=== PATIENT | female | born 1980 | race Caucasian/White ===

== ENCOUNTER 2017-02-07 17:48 | Emergency (ER) | payer OTHER ==
[2017-02-07 17:53] VITALS: BP 119/72; PULSE 85; TEMP 98; BMI 37.8
--- NOTE | 2017-02-07 18:23 | PDOC ---
History of Present Illness - General Chief Complaint: Injury Stated Complaint: FALL THUMB INJURY Time Seen by Provider: 02/07/17 18:04 History Source: Patient - History of Present Illness Occurred: reports: yesterday Severity: reports: mild Upper Extremity Pain Location: left: thumb Past History - Past Medical History Allergies/Adverse Reactions: Allergies Allergy/AdvReac Type Severity Reaction Status Date / Time No Known Allergies Allergy Verified 02/07/17 17:50 Home Medications: Ambulatory Orders NK [No Known Home Medication] 02/07/17 Asthma: Yes GI Disorders: Yes (GERD) Kidney Stones: Yes Suicide Attempt (Hx): No Other medical history: GALLSTONES - Family Disease History Family Disease History: Diabetes: Mother - Immunization History Immunization Up to Date: No - Psycho/Social/Smoking Cessation Hx Anxiety: No Suicidal Ideation: No Smoking Status: No Smoking History: Never smoked Have you smoked in the past 12 months: No Number of Cigarettes Smoked Daily: 0 Information on smoking cessation initiated: No Hx Alcohol Use: No Drug/Substance Use Hx: No Substance Use Type: None Review of Systems - Review of Systems Musculoskeletal: Yes: Joint Pain, Joint Swelling Neurological: No: Headache, Dizziness *Physical Exam - Vital Signs Last Vital Signs Temp Pulse Resp BP Pulse Ox 98.0 F 85 18 119/72 100 02/07/17 17:50 02/07/17 17:50 02/07/17 17:50 02/07/17 17:50 02/07/17 17:50 - Physical Exam General Appearance: Yes: Appropriately Dressed. No: Apparent Distress HEENT: positive: Normal Voice, Other (minimal swelling/ecchymosis to L periorbital area, able to open eye fully, no conjunctival involvement, no gross fb, EOMI, no facial crepitus/stepoff) Neck: positive: Supple Respiratory/Chest: negative: Respiratory Distress Extremity: positive: Normal Inspection (abrasions to L forearm, ecchymosis w/ ttp along palmar aspect of L 1st metatarsal, no snuffbox ttp) Integumentary: positive: Dry, Warm Neurologic: positive: Fully Oriented, Alert, Normal Mood/Affect ED Treatment Course - RADIOLOGY Radiology Studies Ordered: Category Date Time Status FINGER(S) LEFT [RAD] Stat Radiology 02/07/17 18:22 Ordered Medical Decision Making - Medical Decision Making 02/07/17 18:22 36 yo F, no sig hx, p/w L thumb injury s/p fall. Pt states while outdoors last night she tripped and fell. Also c/o L eye pain and swelling which has since improved. No pain inside eye, photophobia, tearing, fb sensation or visual changes. No LOC, headache, dizziness, n/v See exam L thumb injury M/l sprain -xr r/o fx L eri-orbital contusion No e/o serious injury, i.e blow out fx or facial fx -ice as needed for swelling *DC/Admit/Observation/Transfer Diagnosis at time of Disposition: Thumb sprain Qualifiers: Encounter type: initial encounter Sprain of finger site: unspecified site Laterality: left Qualified Code(s): S63.602A - Unspecified sprain of left thumb , initial encounter Periorbital contusion of left eye Qualifiers: Encounter type: initial encounter Qualified Code(s): S05.12XA - Contusion of eyeball and orbital tissues, left eye, initial encounter - Discharge Dispostion Disposition: HOME Condition at time of disposition: Good - Patient Instructions Printed Discharge Instructions: DI for Finger Sprain Additional Instructions: Take motrin for pain as needed
== END 2017-02-07 19:05 | disposition home or self-care (01) ==
LOC: JERFT 17:48
DX: S63.622A Sprain of interphalangeal joint of left thumb, initial encounter (principal); S05.12XA Contusion of eyeball and orbital tissues, left eye, initial encounter; W18.39XA Other fall on same level, initial encounter; Y93.89 Activity, other specified; Y92.488 Other paved roadways as the place of occurrence of the external cause
CPT/HCPCS: 73140-TC-LT; 99281-25

== ENCOUNTER 2017-06-02 17:57 | Emergency (ER) | payer OTHER ==
[2017-06-02 18:16] VITALS: BP 127/76; PULSE 77; TEMP 98.3; BMI 37.8
[2017-06-02] MEDS ORDERED: DEXAMETHASONE LIQUID 0.5 MG/5 ML 240 ML BULK BOTTLE PO ONE (19:20)
[2017-06-02] MEDS ORDERED: ALBUTEROL SO4 2.5/IPRATROPIUM 0.5 INH SOL 3 ML VIAL.NEB. NEB ONE ×2 (19:21→19:29)
[2017-06-02] MEDS ORDERED: DEXAMETHASONE SOD PHOSPHATE 10 MG/1 ML VIAL ONE (19:23)
--- NOTE | 2017-06-02 19:26 | PDOC ---
History of Present Illness - General Chief Complaint: Cold Symptoms Stated Complaint: PAIN, ACUTE Time Seen by Provider: 06/02/17 18:36 History Source: Patient Exam Limitations: No Limitations - History of Present Illness Initial Comments: 06/02/17 19:23 Chief complaint: Cough 2-3 days with chest tightness History of present illness: Patient is a 37-year-old female with a history of asthma here today complaining of intermittent chest tightness with productive cough of greenish phlegm for 2-3 days. Patient denies any fever, nasal congestion, sore throat, or any other symptoms. Patient denies any admissions to the hospital due to her asthma. Patient has been using of Ventolin pump and nebulizer with relief of symptoms intermittently. Denies any chance of . Timing/Duration: getting worse Severity: mild Associated Symptoms: reports: cough (GREENISH PHELGM ), shortness of breath ( INTERMITENTLY ) Past History - Past Medical History Allergies/Adverse Reactions: Allergies Allergy/AdvReac Type Severity Reaction Status Date / Time No Known Allergies Allergy Verified 06/02/17 18:15 Home Medications: Ambulatory Orders Albuterol 0.083% Nebulizer Redd [Ventolin 0.083% Nebulizer Soln -] 1 neb NEB Q4H PRN #1 vial MDD 6 06/02/17 Albuterol Sulfate Inhaler - [Ventolin Hfa Inhaler -] 1 - 2 inh PO Q4H 06/02/17 Albuterol Sulfate Inhaler - [Ventolin Hfa Inhaler -] 2 inh PO Q4H PRN #1 inh MDD 6 06/02/17 Azithromycin [Zithromax 250mg Tablets -] 250 mg PO UTDICT #6 tab MDD 500 Fluticasone/Salmeterol [Advair Hfa 230-21 Mcg Inhaler] 1 inh PO BID #1 inhaler MDD 2 06/02/17 Asthma: Yes GI Disorders: Yes (GERD) Kidney Stones: Yes - Family Disease History Family Disease History: Diabetes: Mother - Immunization History Immunization Up to Date: No - Suicide/Smoking/Psychosocial Hx Smoking Status: No Smoking History: Never smoked Have you smoked in the past 12 months: No Number of Cigarettes Smoked Daily: 0 Hx Alcohol Use: Yes (SOCIAL) Drug/Substance Use Hx: No Substance Use Type: None Review of Systems - Review of Systems Able to Perform ROS?: Yes Constitutional: No: Symptoms Reported HEENTM: No: Symptoms Reported Respiratory: Yes: Shortness of Breath (INTERMITTENT), Productive cough ( GREENISH ) Cardiac (ROS): No: Symptoms Reported ABD/GI: No: Symptoms Reported Musculoskeletal: No: Symptoms Reported Integumentary: No: Symptoms Reported *Physical Exam - Vital Signs Last Vital Signs Temp Pulse Resp BP Pulse Ox 98.3 F 77 20 127/76 99 06/02/17 18:12 06/02/17 18:12 06/02/17 18:12 06/02/17 18:12 06/02/17 18:12 - Physical Exam General Appearance: Yes: Appropriately Dressed HEENT: positive: Normal ENT Inspection Neck: negative: Lymphadenopathy (R), Lymphadenopathy (L) Respiratory/Chest: positive: Lungs Clear, Normal Breath Sounds. negative: Chest Tender, Respiratory Distress Cardiovascular: positive: Regular Rhythm, Regular Rate, S1, S2 Integumentary: positive: Normal Color Neurologic: positive: Alert, Normal Response Medical Decision Making - Medical Decision Making 06/02/17 19:25 Patient is a 37-year-old female with a history of asthma here today complaining of intermittent chest tightness with productive cough of greenish phlegm for 2- 3 days. Patient denies any fever, nasal congestion, sore throat, or any other symptoms. Patient denies any admissions to the hospital due to her asthma. Patient has been using of Ventolin pump and nebulizer with relief of symptoms intermittently. Denies any chance of . ASTHMATIC BRONCHITIS PLAN: DUONEB NOW DECADRON 10 MG PO NOW ADVAIR 112/21 MCG ONE INHALE BID VENTOLIN HFA 2 PUFFS EVERY 4 HRS PRN WHEEZING, CHEST TIGHTNESS ALBUTEROL NEB 0.083% REDD EVERY 4 HRS PRN WHEEZING, CHEST TIGHTNESS AZITHROMYCIN 250 MG 2 TABS TODAY THAN ONE TAB DAILY FOR FOLLOWING 4 DAYS 06/02/17 19:33 *DC/Admit/Observation/Transfer Diagnosis at time of Disposition: Asthmatic bronchitis Qualifiers: Asthma severity: unspecified severity Asthma complication type: uncomplicated Qualified Code(s): J45.909 - Unspecified asthma, uncomplicated - Discharge Dispostion Disposition: HOME Condition at time of disposition: Stable - Prescriptions Prescriptions: Fluticasone/Salmeterol [Advair Hfa 230-21 Mcg Inhaler] 1 inh PO BID #1 inhaler MDD 2 Albuterol 0.083% Nebulizer Redd [Ventolin 0.083% Nebulizer Soln -] 1 neb NEB Q4H PRN #1 vial MDD 6 PRN Reason: Short Of Breath/Wheezing Albuterol Sulfate Inhaler - [Ventolin Hfa Inhaler -] 2 inh PO Q4H PRN #1 inh MDD 6 PRN Reason: Short Of Breath/Wheezing Azithromycin [Zithromax 250mg Tablets -] 250 mg PO UTDICT #6 tab MDD 500 - Referrals Referrals: Margie Goetz [Primary Care Provider] - - Patient Instructions Additional Instructions: Follow-up with your primary care provider within the next couple of days Return to emergency room if symptoms worsen or new symptoms develop any difficulty breathing Patient voiced understanding of discharge instructions and all questions were answered Thank you for choosing [facility] emergency room for your medical care today - Post Discharge Activity
== END 2017-06-02 20:02 | disposition home or self-care (01) ==
LOC: JERFT 17:57
PROC: 3E0F7GC Introduction of Other Therapeutic Substance into Respiratory Tract, Via Natural or Artificial Opening (ICD-10-PCS; principal; 2017-06-02)
DX: J45.909 Unspecified asthma, uncomplicated (principal)
CPT/HCPCS: 99281-25

== ENCOUNTER 2018-11-29 15:43 | Emergency (ER) | payer OTHER ==
[2018-11-29 16:21] VITALS: BMI 39.4
[2018-11-29 16:42] LABS: URINE APPEARANCE CLEAR; URINE BILIRUBIN NEGATIVE (<2.0 mg/dL); URINE COLOR LTYELLOW; URINE GLUCOSE (UA) NEGATIVE (NEGATIVE); URINE KETONE NEGATIVE (NEGATIVE); URINE LEUK ESTERASE NEGATIVE (NEGATIVE); URINE NITRITE NEGATIVE (NEGATIVE); URINE PROTEIN NEGATIVE (NEGATIVE); URINE UROBILINOGEN NEGATIVE mg/dL (0.2-1.0)
[2018-11-29 16:43] LABS: HCG,QUALITATIVE URINE Negative
[2018-11-29] MEDS ORDERED: KETOROLAC TROMETHAMINE 60 MG/2 ML VIAL IM ONE (18:25)
--- NOTE | 2018-11-29 18:27 | PDOC ---
History of Present Illness - General History Source: Patient Exam Limitations: No Limitations - History of Present Illness Initial Comments: 11/29/18 18:27 The patient is a 38 year old female, with a significant past medical history of kidney stones s/p lithotripsy x4, who presents to the emergency department with low back pain since . She states she rode 4 hrs on a bus recently. She localizes her pain to the L5 midline region. She denies pain radiation. She denies saddle anesthesia. She denies any other complaints. She reports 2 weeks of loose stool, nonbloody, but denies any bowel incontinence. The patient denies chest pain, shortness of breath, headache and dizziness. The patient denies fever, chills, nausea, vomit, diarrhea and constipation. The patient denies dysuria, frequency, urgency and hematuria. Allergies: NKDA Past surgical history: none reported Social history: denies tobacco use <Vale Hartman - Last Filed: 11/29/18 18:27> <Madiha Laurent - Last Filed: 11/29/18 20:54> - General Chief Complaint: Back Pain Stated Complaint: LOWER BACK PAIN Time Seen by Provider: 11/29/18 18:08 Past History <Vale Hartman - Last Filed: 11/29/18 18:27> - Past Medical History Asthma: Yes COPD: No GI Disorders: Yes (GERD) Kidney Stones: Yes - Family Disease History Family Disease History: Diabetes: Mother - Immunization History Immunization Up to Date: No - Suicide/Smoking/Psychosocial Hx Smoking Status: No Smoking History: Unknown if ever smoked Have you smoked in the past 12 months: No Number of Cigarettes Smoked Daily: 0 Hx Alcohol Use: Yes (SOCIAL) Drug/Substance Use Hx: No Substance Use Type: None <Madiha Laurent - Last Filed: 11/29/18 20:54> - Past Medical History Allergies/Adverse Reactions: Allergies Allergy/AdvReac Type Severity Reaction Status Date / Time No Known Allergies Allergy Verified 06/02/17 18:15 Home Medications: Ambulatory Orders Cyclobenzaprine HCl [Flexeril 10 mg] 10 mg PO BID PRN #10 tablet MDD 2 tabs Ibuprofen 800 mg PO TID PRN #21 tablet MDD 3 tabs 11/29/18 Medroxyprogesterone Acetate [Depo-Provera] 150 mg IM ASDIR 11/29/18 Sertraline HCl [Zoloft -] 125 mg PO DAILY 11/29/18 Tramadol HCl 50 mg PO DAILY PRN #4 tablet MDD 1 tab 11/29/18 Review of Systems - Review of Systems Able to Perform ROS?: Yes Comments:: 11/29/18 18:27 CONSTITUTIONAL: Absent: fever, chills, fatigue EYES: Absent: visual changes ENT: Absent: ear pain, sore throat CARDIOVASCULAR: Absent: chest pain, palpitations RESPIRATORY: Absent: cough, SOB GI: (+) diarrhea. Absent: abdominal pain, nausea, vomiting, constipation, GENITOURINARY: Absent: dysuria, frequency, hematuria MUSCULOSKELETAL: (+) back pain,Absent: arthralgia, myalgia SKIN: Absent: rash NEURO: Absent: headache <Vale Hartman - Last Filed: 11/29/18 18:27> *Physical Exam - Vital Signs Last Vital Signs Temp Pulse Resp BP Pulse Ox 98.2 F 87 22 H 132/87 100 11/29/18 16:16 11/29/18 16:16 11/29/18 16:16 11/29/18 16:16 11/29/18 16:16 - Physical Exam Comments: 11/29/18 18:28 GENERAL: Well developed, well nourished. Awake and alert. No acute distress. HEENT: Normocephalic, atraumatic. PERRLA, EOMI. No conjunctival pallor. Sclera are non- icteric. Moist mucous membranes. Oropharynx is clear. NECK: Supple. Full ROM. No JVD. Carotid pulses 2+ and symmetric, without bruits. No thyromegaly. No lymphadenopathy. CARDIOVASCULAR: Regular rate and rhythm. No murmurs, rubs, or gallops. Distal pulses are 2+ and symmetric. PULMONARY: No evidence of respiratory distress. Lungs clear to auscultation bilaterally. No wheezing, rales or rhonchi. ABDOMINAL: (+) protuberant. Soft. Non-tender. Non-distended. No rebound or guarding. No organomegaly. Normoactive bowel sounds. MUSCULOSKELETAL (+) tenderness to L5 midline. No CVA tenderness. Normal range of motion at all joints. No bony deformities or stepoffs. EXTREMITIES: No cyanosis. No clubbing. No edema. No calf tenderness. SKIN: Warm and dry. Normal capillary refill. No rashes. No jaundice. NEUROLOGICAL: Alert, awake, appropriate. Cranial nerves 2-12 intact. Normoreflexic in the upper and lower extremities. Normal speech. Toes are down-going bilaterally. Gait is normal without ataxia. PSYCHIATRIC: Cooperative. Good eye contact. Appropriate mood and affect. <Vale Hartman - Last Filed: 11/29/18 18:27> - Vital Signs Last Vital Signs Temp Pulse Resp BP Pulse Ox 98.2 F 87 22 H 132/87 100 11/29/18 16:16 11/29/18 16:16 11/29/18 16:16 11/29/18 16:16 11/29/18 16:16 <Madiha Laurent - Last Filed: 11/29/18 20:54> Moderate Sedation - Procedure Monitoring Vital Signs: Procedure Monitoring Vital Signs Temperature 98.2 F 11/29/18 16:16 Pulse Rate 87 11/29/18 16:16 Respiratory Rate 22 H 11/29/18 16:16 Blood Pressure 132/87 11/29/18 16:16 O2 Sat by Pulse Oximetry (%) 100 11/29/18 16:16 <Vale Hartman - Last Filed: 11/29/18 18:27> - Procedure Monitoring Vital Signs: Procedure Monitoring Vital Signs Temperature 98.2 F 11/29/18 16:16 Pulse Rate 87 11/29/18 16:16 Respiratory Rate 22 H 11/29/18 16:16 Blood Pressure 132/87 11/29/18 16:16 O2 Sat by Pulse Oximetry (%) 100 11/29/18 16:16 <Madiha Laurent - Last Filed: 11/29/18 20:54> ED Treatment Course - ADDITIONAL ORDERS Additional order review: Laboratory Results 11/29/18 16:22 Urine Color Ltyellow Urine Appearance Clear Urine pH 6.0 Ur Specific Hennessey 1.023 Urine Protein Negative Urine Glucose (UA) Negative Urine Ketones Negative Urine Blood Negative Urine Nitrite Negative Urine Bilirubin Negative Urine Urobilinogen Negative Ur Leukocyte Esterase Negative Urine HCG, Qual Negative <Vale Hartman - Last Filed: 11/29/18 18:27> - ADDITIONAL ORDERS Additional order review: Laboratory Results 11/29/18 16:22 Urine Color Ltyellow Urine Appearance Clear Urine pH 6.0 Ur Specific Hennessey 1.023 Urine Protein Negative Urine Glucose (UA) Negative Urine Ketones Negative Urine Blood Negative Urine Nitrite Negative Urine Bilirubin Negative Urine Urobilinogen Negative Ur Leukocyte Esterase Negative Urine HCG, Qual Negative <Madiha Laurent - Last Filed: 11/29/18 20:54> *DC/Admit/Observation/Transfer - Attestations Scribe Attestion: 11/29/18 18:28 Documentation prepared by Vale Hartman, acting as bilingual medical assistant for Madiha Laurent MD <Vale Hartman - Last Filed: 11/29/18 18:27> <Madiha Laurent - Last Filed: 11/29/18 20:54> Diagnosis at time of Disposition: Low back pain Qualifiers: Chronicity: unspecified Back pain laterality: midline Sciatica presence: without sciatica Qualified Code(s): M54.5 - Low back pain - Discharge Dispostion Disposition: HOME Condition at time of disposition: Stable - Prescriptions Prescriptions: Cyclobenzaprine HCl [Flexeril 10 mg] 10 mg PO BID PRN #10 tablet MDD 2 tabs PRN Reason: Back Pain Ibuprofen 800 mg PO TID PRN #21 tablet MDD 3 tabs PRN Reason: Back Pain Tramadol HCl 50 mg PO DAILY PRN #4 tablet MDD 1 tab PRN Reason: Back Pain - Referrals Referrals: Margie Goetz [Primary Care Provider] - - Patient Instructions Printed Discharge Instructions: DI for Low Back Pain Additional Instructions: please follow up with your regular physician - Post Discharge Activity
[2018-11-29] MEDS ORDERED: KETOROLAC TROMETHAMINE 60 MG/2 ML VIAL ONE (18:31)
[2018-11-29] MEDS ORDERED: CYCLOBENZAPRINE HCL 10 MG TABLET (FP) ONE (19:12)
[2018-11-29] MEDS ORDERED: CYCLOBENZAPRINE HCL 10 MG TABLET (FP) PO ONE (19:20)
[2018-11-29 19:39] VITALS: BP 116/70; PULSE 68; TEMP 98.7
== END 2018-11-29 21:09 | disposition home or self-care (01) ==
LOC: JER 15:43
PROC: 3E0233Z Introduction of Anti-inflammatory into Muscle, Percutaneous Approach (ICD-10-PCS; principal; 2018-11-29)
DX: M54.5 Low back pain (principal); K21.9 Gastro-esophageal reflux disease without esophagitis; J45.909 Unspecified asthma, uncomplicated; Z87.442 Personal history of urinary calculi
CPT/HCPCS: 81003; 84703; 87086; 87186; 96372; 99282-25

== ENCOUNTER → 2019-02-08 | Emergency (ER) | payer OTHER | END | disposition left against medical advice (07) | LOC: JER 01:25 ==

== ENCOUNTER 2019-06-10 06:16 | Emergency (ER) | payer OTHER ==
[2019-06-10 06:58] VITALS: BP 136/95; PULSE 86; TEMP 97.3; BMI 39.4
--- NOTE | 2019-06-10 07:20 | PDOC ---
History of Present Illness - General Chief Complaint: Pain Stated Complaint: PAIN Time Seen by Provider: 06/10/19 07:15 History Source: Patient - History of Present Illness Initial Comments: 06/10/19 07:44 Ms. Orantes is a 39 y/o woman with hx sciatica, asthma presenting with three weeks of ongoing back and L leg pain. She reports that she previously had flares of sciatica, which were managed with stretching and exercise. She reports that three weeks ago she had a long car ride on a road trip to [place]. She reports that the pain began in her L back after the car ride, and radiated down her L leg. She reports that the pain progressively worsened, until it hit its current 10/10 severity last . She describes the pain as shooting, radiation down the L leg as well as some pain to her R back as well. She reports that she was evaluated at [facility] three days ago where she was treated with percocet and diazepam which did not alleviate her symptoms. She denies any fevers, chills, weakness, pain elsewhere, shortness of breath, chest pain, abdominal pain, incontinence. Past History - Past Medical History Allergies/Adverse Reactions: Allergies Allergy/AdvReac Type Severity Reaction Status Date / Time No Known Allergies Allergy Verified 06/02/17 18:15 Home Medications: Ambulatory Orders Cyclobenzaprine HCl [Flexeril 10 mg] 10 mg PO BID PRN #10 tablet MDD 2 tabs Ibuprofen 800 mg PO TID PRN #21 tablet MDD 3 tabs 11/29/18 Medroxyprogesterone Acetate [Depo-Provera] 150 mg IM ASDIR 11/29/18 Sertraline HCl [Zoloft -] 125 mg PO DAILY 11/29/18 Tramadol HCl 50 mg PO DAILY PRN #4 tablet MDD 1 tab 11/29/18 Diazepam [Valium] 5 mg PO DAILY PRN #10 tablet MDD 1 06/10/19 Asthma: Yes COPD: No GI Disorders: Yes (GERD) Kidney Stones: Yes - Immunization History Immunization Up to Date: No - Psycho Social/Smoking Cessation Hx Smoking Status: No Smoking History: Never smoked Have you smoked in the past 12 months: No Number of Cigarettes Smoked Daily: 0 Hx Alcohol Use: No Drug/Substance Use Hx: No Substance Use Type: None Review of Systems - Review of Systems Able to Perform ROS?: Yes Comments:: 06/10/19 08:00 ROS: GENERAL/CONSTITUTIONAL: No fever or chills. No weakness. HEAD, EYES, EARS, NOSE AND THROAT: No change in vision. No ear pain or discharge. No sore throat. CARDIOVASCULAR: No chest pain or shortness of breath RESPIRATORY: No cough, wheezing, or hemoptysis. GASTROINTESTINAL: No nausea, vomiting, diarrhea or constipation. GENITOURINARY: No dysuria, frequency, or change in urination. MUSCULOSKELETAL: Back pain, L leg pain. No other joint or muscle swelling or pain. No neck pain. SKIN: No rash NEUROLOGIC: No headache, vertigo, loss of consciousness, or change in strength/ sensation. ENDOCRINE: No increased thirst. No abnormal weight change HEMATOLOGIC/LYMPHATIC: No anemia, easy bleeding, or history of blood clots. ALLERGIC/IMMUNOLOGIC: No hives or skin allergy. *Physical Exam - Vital Signs Last Vital Signs Temp Pulse Resp BP Pulse Ox 97.3 F L 86 20 136/95 95 06/10/19 06:30 06/10/19 06:30 06/10/19 06:30 06/10/19 06:30 06/10/19 06:30 - Physical Exam Comments: 06/10/19 08:43 PE: GENERAL: Awake, alert, and fully oriented, tearful, moderate distress HEAD: No signs of trauma, normocephalic, atraumatic EYES: PERRLA, EOMI, sclera anicteric, conjunctiva clear ENT: Auricles normal inspection, hearing grossly normal, nares patent, oropharynx clear without exudates. Moist mucosa NECK: Normal ROM, supple, no lymphadenopathy, JVD, or masses LUNGS: No distress, speaks full sentences, clear to auscultation bilaterally HEART: Regular rate and rhythm, normal S1 and S2, no murmurs, rubs or gallops, peripheral pulses normal and equal bilaterally. ABDOMEN: Soft, nontender, normoactive bowel sounds. No guarding, no rebound. No masses EXTREMITIES : Normal inspection, LLE ROM limited by pain, no edema. No clubbing or cyanosis NEUROLOGICAL: 5/5 strength in bilateral lower extremity. Sensation equal and intact in bilateral lower extremity. Cranial nerves II through XII grossly intact. Normal speech, gait limited by pain, no focal sensorimotor deficits. SKIN: Warm, Dry, normal turgor, no rashes or lesions noted General Appearance: Yes: Nourished, Appropriately Dressed, Apparent Distress, Moderate Distress. No: Alcohol on Breath, Intoxicated Medical Decision Making - Medical Decision Making 06/10/19 08:01 39F with hx sciatica p/w three weeks of back pain radiating to L leg, unable to cooperate with majority of physical exam at this time. Pain most likely representing sciatica given history, but further exam needed to assess other red flag back pain signs. Plan: Toradol 15mg Valium 5mg Reassess once pain is more controlled Dispo: Likely discharge pending pain control, repeat exams 06/10/19 08:46 Pain improved with toradol, valium. She reports some ongoing pain. On physical exam: 5/5 strength on hip flexion/extension, 5/5 strength on ankle flexion/ extension in bilateral LE, sensation intact bilaterally. Given no neuro signs, no red flag back pain signs, plan for discharge, outpatient follow up with PCP, neurology given duration of symptoms. Plan for outpatient valium for pain control. Discharge - Discharge Information Problems reviewed: Yes Clinical Impression/Diagnosis: Sciatica Qualifiers: Laterality: left Qualified Code(s): M54.32 - Sciatica, left side Condition: Stable Disposition: HOME - Admission No - Additional Discharge Information Prescriptions: Diazepam [Valium] 5 mg PO DAILY PRN #10 tablet MDD 1 PRN Reason: Pain - Follow up/Referral Referrals: Margie Goetz [Primary Care Provider] - - Patient Discharge Instructions Patient Printed Discharge Instructions: DI for Back Pain With Sciatica Additional Instructions: You were seen in the Emergency Department for severe back pain that spreads down your leg. Your symptoms are likely due to a condition called Sciatica. Please follow up with your primary care provider as soon as possible. We are also giving you a referral for a neurologist to follow up with, please make an appointment to see them as soon as possible. We are prescribing you valium to help control your symptoms - please take it as directed. This medication can make you sleepy, please do not drive or operate heavy machinery while taking this medication. - Post Discharge Activity
[2019-06-10] MEDS ORDERED: KETOROLAC TROMETHAMINE 15 MG/ML VIAL IM ONE (07:37)
[2019-06-10] MEDS ORDERED: diazePAM 5 MG TABLET PO ONE (07:38)
[2019-06-10] MEDS ORDERED: diazePAM 5 MG TABLET ONE (08:15)
[2019-06-10] MEDS ORDERED: KETOROLAC TROMETHAMINE 15 MG/ML VIAL ONE (08:16)
--- NOTE | 2019-06-10 13:46 | PDOC ---
Attending Attestation - Resident Resident Name: NaWilliam - ED Attending Attestation I have performed the following: I have examined & evaluated the patient, The case was reviewed & discussed with the resident, I agree w/resident's findings & plan, Exceptions are as noted - HPI HPI: 06/10/19 13:40 39 yo F with h/o sciatica, here with c/o low back pain. pain worse with movement , radiates down left leg. states started after long car ride few weeks ago. no bowel or bladder incontinence, no h/o prior imaging. no new weakness or numbness. pain severe 03/22. no f/c - Physicial Exam PE: 06/10/19 13:41 awake alert lungs clear bilat heart rrr no mrg abd nt nd ext wwp. no midline spinal tenderness. paraspinal m spasm. lower extremity strength 5/5 bilat sensation intact throughout. - Medical Decision Making 06/10/19 13:46 39 yo F with low back pain normal nuerological exam. plan nsaids, muscle relaxers. pt improved following her meds. will dc home wiht work note, nuero fu. advised to seek pcp fu for outpt physicial therapy and nueroimaging if no improveent to sxs.
== END 2019-06-10 09:15 | disposition home or self-care (01) ==
LOC: JER 06:16
PROC: 3E0233Z Introduction of Anti-inflammatory into Muscle, Percutaneous Approach (ICD-10-PCS; principal; 2019-06-10)
DX: M54.42 Lumbago with sciatica, left side (principal); J45.909 Unspecified asthma, uncomplicated; K21.9 Gastro-esophageal reflux disease without esophagitis; Z87.442 Personal history of urinary calculi
CPT/HCPCS: 84703; 96372; 99283-25

== ENCOUNTER 2019-08-12 22:56 | Emergency (ER) | payer OTHER ==
[2019-08-12 23:01] VITALS: TEMP 98; BMI 41.1
--- NOTE | 2019-08-13 00:31 | PDOC ---
History of Present Illness - General Chief Complaint: Pain Stated Complaint: PAIN Time Seen by Provider: 08/13/19 00:27 - History of Present Illness Initial Comments: 08/13/19 00:35 The patient is a 39 year old female with a history of Asthma, sciatic back pain , kidney stones, who presents for evaluation of lower back pain. The patient reports a 1 day history of left sided lower back pain radiating down her left leg worse with movement similar to her prior exacerbations of her sciatic back pain. She states that the pain has been worsening since onset prompting her presentation to the ED for further evaluation. She otherwise denies fevers, chills, SOB, chest pain, nausea, vomiting, abdominal pain, or changes with urination or bowel movements. Past History - Past Medical History Allergies/Adverse Reactions: Allergies Allergy/AdvReac Type Severity Reaction Status Date / Time No Known Allergies Allergy Verified 08/12/19 23:01 Home Medications: Ambulatory Orders Medroxyprogesterone Acetate [Depo-Provera] 150 mg IM ASDIR 11/29/18 Sertraline HCl [Zoloft -] 125 mg PO DAILY 11/29/18 Tramadol HCl 50 mg PO DAILY PRN #4 tablet MDD 1 tab 11/29/18 Diazepam [Valium] 5 mg PO DAILY PRN #10 tablet MDD 1 06/10/19 Cyclobenzaprine HCl [Flexeril 10 mg] 10 mg PO BID PRN #10 tablet MDD 2 tabs 10/01 Ibuprofen 800 mg PO TID PRN #21 tablet MDD 3 tabs 08/13/19 Asthma: Yes COPD: No GI Disorders: Yes (GERD) Kidney Stones: Yes Other medical history: chronic lower back pain - Immunization History Immunization Up to Date: No - Psycho Social/Smoking Cessation Hx Smoking Status: No Smoking History: Never smoked Have you smoked in the past 12 months: No Number of Cigarettes Smoked Daily: 0 Hx Alcohol Use: No Drug/Substance Use Hx: No Substance Use Type: None Review of Systems - Review of Systems Comments:: 08/13/19 00:38 Constitutional: No fevers, chills, fatigue, malaise HEENT: No Rhinorrhea, nasal congestion, visual changes Cardiovascular: No chest pain, syncope, palpitations, lightheadedness Respiratory: No Cough, SOB, Hemoptysis, Gastrointestinal: No Abdominal pain, Nausea, Vomiting, Constipation, Diarrhea, Melena Genitourinary: No Dysuria, Frequency, Urgency, Hesitancy, Hematuria, Flank pain Musculoskeletal: Lower back pain. No Myalgia, arthralgia Skin: No rashes, itching, bruising, pallor Neurologic: No Headache, Dizziness, Numbness, Weakness, or Tingling Psychiatric: No Hallucinations. No SI or HI *Physical Exam - Vital Signs Last Vital Signs Temp Pulse Resp BP Pulse Ox 98 F 64 18 129/79 99 08/12/19 22:58 08/12/19 22:58 08/12/19 22:58 08/12/19 22:58 08/12/19 22:58 - Physical Exam 08/13/19 00:38 General Appearance: Nourished. No Apparent Distress HEENT: No Pharyngeal Erythema, Tonsillar Exudate, Tonsillar Erythema Neck: No Cervical Lymphadenopathy Respiratory/Chest: Lungs Clear, Normal Breath Sounds. No Crackles, Rales, Rhonchi, Wheezing Cardiovascular: Regular Rhythm, Regular Rate. No Murmur, Gallops, Rubs Gastrointestinal/Abdominal: Normal Bowel Sounds, Soft. No Guarding, Rebound, Tenderness Musculoskeletal: Tenderness to palpation to the left parasinal lumbar region of the lower back. Reproducible pain with left leg raise. Normal patella reflexes on exam. No CVA Tenderness Extremity: Normal Capillary Refill Integumentary: Normal Color, Dry, Warm Neurologic: Fully Oriented, Alert, Normal Mood/Affect, Normal Response, Motor Strength 5/5. Medical Decision Making - Medical Decision Making 08/13/19 00:40 The patient is a 39 year old female with a history of Asthma, sciatic back pain , kidney stones, who presents for evaluation of lower back pain. Given the patient's history and physical exam, it is likely the patient's symptoms are due to an exacerbation of her chronic sciatic back pain. We will obtain a ua and urine preg. We will treat with flexril, toradol, and a lidocaine patch and continue to monitor and reassess while here in the ED. 08/13/19 04:03 The patient reports improvement in her symptoms after medications. We are comfortable discharging the patient home in stable condition. Patient and family made aware of impression and plan, return precautions discussed including but not limited to worsening pain or symptoms, fevers, or signs of infection, chest pain, respiratory distress, inability to tolerate oral intake, dehydration, syncope, or neurologic changes. The patient is to follow up with PMD and specialist as recommended within 1 week, follow up information provided and the patient will call for an appointment. The patient is to take medications as instructed for duration of time and continue with supportive care , avoid triggers and precipitants. Patient is safe for outpatient follow-up. Discharge - Discharge Information Problems reviewed: Yes Clinical Impression/Diagnosis: Low back pain Qualifiers: Chronicity: unspecified Back pain laterality: unspecified Sciatica presence: with sciatica Sciatica laterality: sciatica laterality unspecified Qualified Code(s): M54.40 - Lumbago with sciatica, unspecified side Condition: Improved Disposition: HOME - Admission No - Additional Discharge Information Prescriptions: Cyclobenzaprine HCl [Flexeril 10 mg] 10 mg PO BID PRN #10 tablet MDD 2 tabs PRN Reason: Back Pain Ibuprofen 800 mg PO TID PRN #21 tablet MDD 3 tabs PRN Reason: Back Pain - Follow up/Referral Referrals: Margie Goetz [Primary Care Provider] - Skyler Hayes MD [Staff Physician] - - Patient Discharge Instructions Patient Printed Discharge Instructions: DI for Back Pain With Sciatica Additional Instructions: 1) Please follow-up with your primary care doctor in the next 2-3 days. Please call tomorrow to schedule a follow up appointment. If you cannot follow up with your doctor within 1 week please return to the Emergency Department for any urgent issues. 2) If you have any worsening of symptoms or any other concerns, please return to the ER immediately. Return if worsening symptoms including fevers, headache, vomiting, visual or hearing disturbances, abdominal pain, chest pain, shortness of breath, syncope, dehydration, inability to take things by mouth/vomiting, altered mental status, or worsening concerning symptoms. 3) Please continue taking your home medications as directed. Your medications on discharge include flexeril. Side effects may include upset stomach, abdominal pain, vomiting, or diarrhea. Do not drink alcohol with your medications. - Post Discharge Activity
[2019-08-13] MEDS ORDERED: CYCLOBENZAPRINE HCL 10 MG TABLET (FP) PO ONE (00:32)
[2019-08-13] MEDS ORDERED: LIDOCAINE 5% TOPICAL PATCH TP ONE (00:32)
[2019-08-13] MEDS ORDERED: LIDOCAINE 5% TOPICAL PATCH ONE (00:52)
[2019-08-13] MEDS ORDERED: CYCLOBENZAPRINE HCL 10 MG TABLET (FP) ONE (00:52)
--- NOTE | 2019-08-13 01:12 | PDOC ---
Attending Attestation - Resident Resident Name: Pete Gacria - ED Attending Attestation I have performed the following: I have examined & evaluated the patient, The case was reviewed & discussed with the resident, I agree w/resident's findings & plan, Exceptions are as noted - HPI HPI: 08/13/19 01:10 39 F with h/o asthma, chronic lower back pain, kidney stones, presenting to ED with lower back pain. Pt states that she has had lower back pain on and off for several months. She denies any falls or trauma. Yesterday, she bent down to pick something up and exacerbated her back pain. States that it radiates down her L leg. Denies any weakness/numbness in any extremity. No incontinence or saddle anesthesia. No dysuria or flank pain. No F/C. - Physicial Exam PE: 08/13/19 01:11 "GENERAL: Awake, alert, and fully oriented, in no acute distress. HEAD: No signs of trauma EYES: PERRLA, EOMI, sclera anicteric, conjunctiva clear ENT: Auricles normal inspection, hearing grossly normal, nares patent, oropharynx clear without exudates. Moist mucosa NECK: Nontender, no stepoffs, Normal ROM, supple, no lymphadenopathy, JVD, or masses LUNGS: Breath sounds equal, clear to auscultation bilaterally. No wheezes, and no crackles HEART: Regular rate and rhythm, normal S1 and S2, no murmurs, rubs or gallops ABDOMEN: Soft, nontender, normoactive bowel sounds. No guarding, no rebound. No masses EXTREMITIES: Normal range of motion, no edema. No clubbing or cyanosis. No cords, erythema, or tenderness NEUROLOGICAL: Cranial nerves II through XII intact. 5/5 strength and sensation in all extremities, Normal speech, normal gait, normal cerebellar function SKIN: Warm, Dry, normal turgor, no rashes or lesions noted. BACK: + L paraspinal TTP, no midline TTP, no stepoffs - Medical Decision Making 08/13/19 01:11 39 F with lower back pain radiating down L leg. Likely sciatic nerve pain. Pt neurovascularly intact. No evidence of cord compression or cauda equina. No CVAT to suggest nephrolithiasis. - UA, UPT - pain control 08/13/19 03:39 Pain well controlled Pt ambulatory without assistance Pt is well appearing, with normal vitals. Clinically stable for DC at this time. I discussed the physical exam findings, ancillary test results and final diagnoses with the patient. I answered all of the patient's questions. The patient was satisfied with the care received and felt comfortable with the discharge plan and treatment plan. The patient agrees to follow up with the primary care physician within 24-72 hours.
[2019-08-13 01:57] LABS: PH,URINE 6.5 (5.0-8.0); URINE APPEARANCE CLEAR; URINE BILIRUBIN NEGATIVE (NEGATIVE); URINE COLOR YELLOW; URINE GLUCOSE (UA) NEGATIVE (NEGATIVE); URINE KETONE NEGATIVE (NEGATIVE); URINE LEUK ESTERASE NEGATIVE (NEGATIVE); URINE NITRITE NEGATIVE (NEGATIVE); URINE PROTEIN NEGATIVE (NEGATIVE); URINE UROBILINOGEN 0.2 mg/dL (0.2-1.0)
[2019-08-13] MEDS ORDERED: KETOROLAC TROMETHAMINE 60 MG/2 ML VIAL IM ONE (02:01)
[2019-08-13] MEDS ORDERED: KETOROLAC TROMETHAMINE 60 MG/2 ML VIAL ONE (02:30)
[2019-08-13] MEDS ORDERED: diazePAM 5 MG TABLET PO ONE (02:49)
[2019-08-13 04:17] VITALS: BP 132/90; PULSE 87
== END 2019-08-13 04:17 | disposition home or self-care (01) ==
LOC: JER 22:56
PROC: 3E0233Z Introduction of Anti-inflammatory into Muscle, Percutaneous Approach (ICD-10-PCS; principal; 2019-08-12)
DX: M54.42 Lumbago with sciatica, left side (principal); J45.909 Unspecified asthma, uncomplicated; Z87.442 Personal history of urinary calculi
CPT/HCPCS: 81003; 84703; 96372; 99282-25

== ENCOUNTER 2020-03-09 12:43 | Emergency (ER) | payer OTHER ==
[2020-03-09 12:59] VITALS: TEMP 98.4; BMI 42.9
[2020-03-09] MEDS ORDERED: DEXAMETHASONE LIQUID 0.5 MG/5 ML PO ONE (13:36)
[2020-03-09] MEDS ORDERED: DEXAMETHASONE SOD PHOSPHATE 10 MG/1 ML VIAL ONE ×2 (13:38→13:39)
[2020-03-09] MEDS ORDERED: DEXAMETHASONE SOD PHOSPHATE 10 MG/1 ML VIAL IVPUSH ONE (13:44)
[2020-03-09 15:53] VITALS: BP 135/86; PULSE 88
== END 2020-03-09 15:53 | disposition home or self-care (01) ==
LOC: JER 12:43
PROC: 3E033GC Introduction of Other Therapeutic Substance into Peripheral Vein, Percutaneous Approach (ICD-10-PCS; principal; 2020-03-09)
DX: J03.90 Acute tonsillitis, unspecified (principal)
CPT/HCPCS: 70490-TC; 87070; 87880; 99284-25; J1100

== ENCOUNTER 2022-07-22 18:52 | Emergency (ER) | payer OTHER ==
[2022-07-22 19:27] VITALS: BP 126/72; PULSE 90; RESP 18; TEMP 97.7; BMI 46.3
[2022-07-22] MEDS ORDERED: ACETAMINOPHEN 1000 MG/100 ML BAG IVPB ONE (20:55)
[2022-07-22] MEDS ORDERED: ALBUTEROL SO4 2.5/IPRATROPIUM 0.5 INH SOL 3 ML VIAL.NEB. NEB ONE ×2 (20:55)
[2022-07-22] MEDS ORDERED: methylPREDNISolone NA SUCC 125 MG/2 ML VIAL IVPB ONE (20:55)
[2022-07-22] MEDS ORDERED: ACETAMINOPHEN INJECTION 100 ML IVPB ONE (21:07)
[2022-07-22] MEDS ORDERED: methylPREDNISolone NA SUCC 125 MG/2 ML VIAL ONE (21:07)
[2022-07-22 21:44] LABS: BASO % 0.6 % (0-2.0); EOS % 3.9 % (0-4.5); HEMATOCRIT 42.5 % (32.4-45.2); HEMOGLOBIN 13.9 GM/dL (10.7-15.3); LYMPH % 37.2 % (8-40); MCH 28.1 pg (25.7-33.7); MCHC 32.6 g/dl (32.0-36.0); MEAN CELL VOLUME 86.2 fl (80-96); MEAN PLT VOLUME 8.8 fl (7.5-11.1); MONO % 7.3 % (3.8-10.2); PLATELET COUNT 414 10^3/uL (134-434); RBC 4.93 M/mm3 (3.60-5.2); RDW 13.9 % (11.6-15.6); WHITE BLOOD COUNT 14.8 K/mm3 (4.0-10.0)
[2022-07-22 22:01] LABS: ALBUMIN 3.6 g/dl (3.4-5.0); BLOOD UREA NITROGEN 18.9 mg/dL (7-18); CALCIUM 9.4 mg/dL (8.5-10.1)
[2022-07-22 22:05] LABS: CREATININE 0.7 mg/dL (0.55-1.3)
[2022-07-22 22:06] LABS: BILIRUBIN,TOTAL 0.2 mg/dL (0.2-1); TOT PROT 7.3 g/dl (6.4-8.2)
[2022-07-22] MEDS ORDERED: ALBUTEROL SO4 0.083% IH SOL 2.5 MG/3 ML VIAL.NEB. NEB ONE ×2 (23:16)
== END 2022-07-23 00:18 | disposition home or self-care (01) ==
LOC: JER 18:52
PROC: 3E0333Z Introduction of Anti-inflammatory into Peripheral Vein, Percutaneous Approach (ICD-10-PCS; principal; 2022-07-22)
PROC: 3E0F7GC Introduction of Other Therapeutic Substance into Respiratory Tract, Via Natural or Artificial Opening (ICD-10-PCS; 2022-07-22)
PROC: 3E033GC Introduction of Other Therapeutic Substance into Peripheral Vein, Percutaneous Approach (ICD-10-PCS; 2022-07-22)
DX: R06.02 Shortness of breath (principal)
CPT/HCPCS: 0241U-QW; 36415; 71046-TC-FY; 80053; 84484; 85025; 85379; 93005; 93010; 99285-25

== ENCOUNTER 2022-08-16 17:45 | Emergency (ER) | payer OTHER ==
[2022-08-16 17:53] VITALS: BP 111/78; PULSE 107; RESP 18; TEMP 97.8; BMI 47.2
[2022-08-16 20:01] LABS: BASO % 0.6 % (0-2.0); EOS % 2.2 % (0-4.5); HEMATOCRIT 44.7 % (32.4-45.2); HEMOGLOBIN 14.7 GM/dL (10.7-15.3); LYMPH % 36.2 % (8-40); MCH 28.5 pg (25.7-33.7); MCHC 32.9 g/dl (32.0-36.0); MEAN CELL VOLUME 86.6 fl (80-96); MEAN PLT VOLUME 8.1 fl (7.5-11.1); MONO % 6.9 % (3.8-10.2); NEUT % 54.1 % (42.8-82.8); PLATELET COUNT 490 10^3/uL (134-434); RBC 5.16 M/mm3 (3.60-5.2); RDW 13.6 % (11.6-15.6); WHITE BLOOD COUNT 14.3 K/mm3 (4.0-10.0)
[2022-08-16] MEDS: ALBUTEROL SO4 2.5/IPRATROPIUM 0.5 INH SOL 3 ML VIAL.NEB. NEB SCH (20:11)
[2022-08-16] MEDS ORDERED: ALBUTEROL SO4 2.5/IPRATROPIUM 0.5 INH SOL 3 ML VIAL.NEB. NEB ONE (20:12)
[2022-08-16 20:26] LABS: CALCIUM 9.3 mg/dL (8.5-10.1)
[2022-08-16 20:27] LABS: ALBUMIN 3.6 g/dl (3.4-5.0); BLOOD UREA NITROGEN 15.8 mg/dL (7-18); MAGNESIUM 2.3 mg/dL (1.8-2.4)
[2022-08-16 20:30] LABS: CREATININE 0.9 mg/dL (0.55-1.3)
[2022-08-16 20:32] LABS: BILIRUBIN,TOTAL 0.1 mg/dL (0.2-1); TOT PROT 7.5 g/dl (6.4-8.2)
[2022-08-16 20:35] LABS: PH,URINE 6.5 (5.0-8.0); URINE APPEARANCE CLOUDY; URINE BILIRUBIN NEGATIVE (NEGATIVE); URINE COLOR YELLOW; URINE GLUCOSE (UA) NEGATIVE (NEGATIVE); URINE KETONE NEGATIVE (NEGATIVE); URINE LEUK ESTERASE NEGATIVE (NEGATIVE); URINE NITRITE NEGATIVE (NEGATIVE); URINE PROTEIN NEGATIVE (NEGATIVE); URINE UROBILINOGEN 0.2 mg/dL (0.2-1.0)
[2022-08-16 20:38] LABS: HCG,QUALITATIVE URINE Negative
== END 2022-08-16 22:53 | disposition home or self-care (01) ==
LOC: JERFT 17:45 → JER 17:45 → JERFT 22:53
PROC: 3E0F7GC Introduction of Other Therapeutic Substance into Respiratory Tract, Via Natural or Artificial Opening (ICD-10-PCS; principal; 2022-08-16)
DX: R05.1 Acute cough (principal)
CPT/HCPCS: 36415; 71046-TC-FY; 71275-TC; 80053; 81003; 83735; 84484; 84703; 85025; 85379; 87086; 93005; 93010; 99285-25; Q9967

== ENCOUNTER 2022-11-30 00:50 | Emergency (ER) | payer OTHER ==
[2022-11-30 01:00] VITALS: BP 125/84; PULSE 83; RESP 18; TEMP 98; BMI 47.2
[2022-11-30] MEDS ORDERED: FAMOTIDINE 20 MG TABLET PO ONE (01:20)
[2022-11-30] MEDS ORDERED: diphenhydrAMINE HCL 25 MG CAPSULE (FP) PO ONE ×2 (01:20→01:23)
[2022-11-30] MEDS ORDERED: predniSONE 20 MG TABLET (UD) PO ONE (01:20)
[2022-11-30] MEDS ORDERED: predniSONE 20 MG TABLET (UD) ONE (01:24)
[2022-11-30] MEDS ORDERED: FAMOTIDINE 20 MG TABLET ONE (01:24)
[2022-11-30] MEDS: ALBUTEROL SO4 2.5/IPRATROPIUM 0.5 INH SOL 3 ML VIAL.NEB. NEB SCH ×4 (01:28→02:16)
== END 2022-11-30 03:22 | disposition home or self-care (01) ==
LOC: JER 00:50
PROC: 3E0F7GC Introduction of Other Therapeutic Substance into Respiratory Tract, Via Natural or Artificial Opening (ICD-10-PCS; principal; 2022-11-30)
DX: L25.0 Unspecified contact dermatitis due to cosmetics (principal); R06.02 Shortness of breath; T49.8X5A Adverse effect of other topical agents, initial encounter
CPT/HCPCS: 99283-25

== ENCOUNTER 2023-05-20 21:21 | Emergency (ER) | payer OTHER ==
[2023-05-20 21:31] VITALS: BMI 44.9
[2023-05-20] MEDS ORDERED: SODIUM CHLORIDE 0.9% 500 ML INFUS.BAG IV ONE (22:16)
[2023-05-20] MEDS ORDERED: ACETAMINOPHEN 1000 MG/100 ML BAG IVPB ONE (22:17)
[2023-05-20] MEDS ORDERED: ONDANSETRON 4 MG/2 ML VIAL IVPUSH ONE (22:17)
[2023-05-20] MEDS ORDERED: FAMOTIDINE 20 MG/50 ML IVPB 20 MG/50 ML MG IVPB ONE ×2 (22:37→22:54)
[2023-05-20] MEDS ORDERED: MAG HYDROX/AL HYDROX/SIMETH 30 ML UNIT-DOSE CUP PO ONE (22:37)
[2023-05-20] MEDS ORDERED: ONDANSETRON 4 MG/2 ML VIAL ONE (22:53)
[2023-05-20] MEDS ORDERED: ACETAMINOPHEN INJECTION 100 ML IVPB ONE (22:53)
[2023-05-20] MEDS ORDERED: MAG HYDROX/AL HYDROX/SIMETH 30 ML UNIT-DOSE CUP ONE (22:53)
[2023-05-20 23:07] LABS: BASO % 0.4 % (0-2.0); HEMATOCRIT 42.3 % (32.4-45.2); HEMOGLOBIN 14.4 GM/dL (10.7-15.3); LYMPH % 35.1 % (8-40); MCH 29.2 pg (25.7-33.7); MEAN CELL VOLUME 85.9 fl (80-96); MEAN PLT VOLUME 8.5 fl (7.5-11.1); MONO % 6.3 % (3.8-10.2); NEUT % 51.2 % (42.8-82.8); PLATELET COUNT 348 10^3/uL (134-434); RBC 4.93 M/mm3 (3.60-5.2); RDW 14.3 % (11.6-15.6); WHITE BLOOD COUNT 11.3 K/mm3 (4.0-10.0)
[2023-05-20 23:25] LABS: POTASSIUM 4.5 mmol/L (3.5-5.1)
[2023-05-20 23:27] LABS: ALBUMIN 3.4 g/dl (3.4-5.0); CALCIUM 8.7 mg/dL (8.5-10.1)
[2023-05-20 23:28] LABS: BLOOD UREA NITROGEN 14.6 mg/dL (7-18); MAGNESIUM 2.3 mg/dL (1.8-2.4)
[2023-05-20 23:30] LABS: CREATININE 0.7 mg/dL (0.55-1.3)
[2023-05-20 23:32] LABS: BILIRUBIN,TOTAL 0.2 mg/dL (0.2-1); TOT PROT 7.4 g/dl (6.4-8.2)
[2023-05-21 00:22] LABS: URINE APPEARANCE CLEAR; URINE BILIRUBIN NEGATIVE (NEGATIVE); URINE COLOR YELLOW; URINE GLUCOSE (UA) NEGATIVE (NEGATIVE); URINE KETONE NEGATIVE (NEGATIVE); URINE LEUK ESTERASE TRACE (NEGATIVE); URINE NITRITE NEGATIVE (NEGATIVE); URINE PROTEIN NEGATIVE (NEGATIVE); URINE UROBILINOGEN 0.2 mg/dL (0.2-1.0)
[2023-05-21 02:24] VITALS: BP 110/60; PULSE 70; RESP 18; TEMP 98.1
[2023-05-21] MEDS ORDERED: diphenhydrAMINE HCL 25 MG CAPSULE (FP) PO ONE ×2 (03:24→03:25)
== END 2023-05-21 03:44 | disposition home or self-care (01) ==
LOC: JER 21:21
PROC: 3E033GC Introduction of Other Therapeutic Substance into Peripheral Vein, Percutaneous Approach (ICD-10-PCS; principal; 2023-05-20)
PROC: 3E033NZ Introduction of Analgesics, Hypnotics, Sedatives into Peripheral Vein, Percutaneous Approach (ICD-10-PCS; 2023-05-20)
PROC: 3E033GC Introduction of Other Therapeutic Substance into Peripheral Vein, Percutaneous Approach (ICD-10-PCS; 2023-05-20)
DX: R19.7 Diarrhea, unspecified (principal); R11.2 Nausea with vomiting, unspecified; L29.9 Pruritus, unspecified; R10.10 Upper abdominal pain, unspecified; K92.1 Melena; R53.1 Weakness; R63.0 Anorexia; R42 Dizziness and giddiness; R35.0 Frequency of micturition; R50.9 Fever, unspecified; R31.9 Hematuria, unspecified
CPT/HCPCS: 36415; 74177-TC; 80053; 81003; 82272; 83690; 83735; 84703; 85025; 87086; 99285-25

== ENCOUNTER 2024-09-17 01:21 | Emergency (ER) | payer OTHER ==
[2024-09-17 01:33] VITALS: BP 140/71; PULSE 90; RESP 20; TEMP 98.4; BMI 48.2
[2024-09-17] MEDS ORDERED: ALBUTEROL SO4 2.5/IPRATROPIUM 0.5 INH SOL 3 ML VIAL.NEB. NEB ONE (01:35)
[2024-09-17] MEDS ORDERED: DEXAMETHASONE SOD PHOSPHATE 10 MG/1 ML VIAL ONE (02:15)
[2024-09-17] MEDS: ALBUTEROL SO4 2.5/IPRATROPIUM 0.5 INH SOL 3 ML VIAL.NEB. NEB SCH (02:21)
[2024-09-17] MEDS: DEXAMETHASONE 4 MG TABLET (FP) PO ONE (02:21)
== END 2024-09-17 04:20 | disposition home or self-care (01) ==
LOC: JER 01:21
PROC: 3E0F7GC Introduction of Other Therapeutic Substance into Respiratory Tract, Via Natural or Artificial Opening (ICD-10-PCS; principal; 2024-09-17)
DX: J45.901 Unspecified asthma with (acute) exacerbation (principal); R05.9 Cough, unspecified; R06.02 Shortness of breath; R50.9 Fever, unspecified; Z20.822 Contact with and (suspected) exposure to COVID-19
CPT/HCPCS: 0241U-QW; 71046-TC-FY; 99284-25